=== PATIENT | female | born 1950 | race Caucasian/White ===

== ENCOUNTER 2016-07-10 14:22 | Day surgery (SDC) | payer MEDICARE ==
[~2016-07-10 14:22] MED LIST: ASPI81; CYCL1PAK PO; LORTA5 PO
[2016-07-10 14:45] VITALS: BP 132/72; PULSE 68; RESP 17; TEMP 98.6; O2SAT 96
--- NOTE | 2016-07-10 17:58 | RADRPT ---
EXAM DATE/TIME: 07/10/2016 00:00 [facility] COMPARISON : INDICATIONS : consult for kypho OBJECTIVE: Temperature: 98.2 Heart Rate: 68 Blood Pressure: 132/72 Respiratory: 18 Oximetry: 96 PNEUMONIA VACCINE: HISTORY OF PRESENT ILLNESS: The patient suffered an episode of bronchitis in late May during which time she had multiple bad coughing episodes, one of which led to some sharp pain in her low back. The pain persisted into june with some increase in intensity prompting Dr. Ford to order an MRI. This study revealed new fracture injury at L5 and some degree of acute on chronic injury at L3 in this patient status post p revious T12, L1, L2 and L4 kyphoplasties. She has benefited from significant symptomatic improvement over the last several weeks, however she still experiences low back pain exacerbated by routine activ ities. She has not had any radicular symptomatology. PAST MEDICAL HISTORY : 1. Osteoarthritis. 2. Deep venous thrombosis. 3. depression PAST SURGICAL HISTORY : 1. lumpectomy 2. gu surgery 3. vein stripping 4. kyphoplasty SOCIAL HISTORY : Social alcohol use. Tobacco;none. ALLERGIES: 1. Ancef Isvspuf02 mg q.d. prozac 10 mg q.d. PHYSICAL EXAMINATION: CV: Regular rate and rhythm. Lungs: Clear to auscultation. Mild tenderness over the lower lumbar region. Lower extremities neurologic intact IMAGING STUDIES: MRI of the lumbar spine from [facility] dated June 25, 2016 reveals the above-stated finding s. No significant bony retropulsion. Moderate loss of vertebral body height at L3 and L5. Stable find ings elsewhere. ASSESSMENT: The patient is significantly improved from a symptomatic standpoint, however I am concerned, especial ly given the experience with her previous fractures, that she may continue to have progression of col lapse in the L3 and L5 vertebra which will lead to additional chronic deformity and resultant additio nal disability. We have an opportunity to prevent that by taking action in the subacute phase. The nicole guzmán does wish to proceed. PLAN: We will schedule the patient for L3 and L5 level kyphoplasties at the next available juncture Many thanks to Dr. Ford for inviting us to again assist in the care of this pleasant woman. Steven Pelaez MD on July 10, 2016 at 17:44 Board Certified Radiologist. This report was verified electronically.
== END 2016-07-10 16:12 | disposition home or self-care (01) ==
LOC: HROP 14:22 → HRIP 14:26 → HROP 16:12
PROVIDERS: ATTEND Family Medicine
DX: S32.030A Wedge compression fracture of third lumbar vertebra, initial encounter for closed fracture (principal)

== ENCOUNTER 2016-07-17 11:57 | Day surgery (SDC) | payer MEDICARE ==
[~2016-07-17] VITALS: Ht 170.2 cm; Wt 80.0 kg
[2016-07-17 12:34] VITALS: BP 159/96; PULSE 103; RESP 20; TEMP 98; O2SAT 94
[2016-07-17] MEDS ORDERED: ASPI81CH37 CHEW (12:40)
[2016-07-17] MEDS ORDERED: ALLE60TA PO (12:40)
[2016-07-17] MEDS ORDERED: POVIDONE IODINE 5% (ANTISEPSIS KIT) 4 APPLICATIONS EACH NARE PRN (12:45)
[2016-07-17] MEDS ORDERED: CHLORHEXIDINE GLUCONATE 2 % 1 PACK (2 CLOTHS) TOPICAL PRN (12:45)
[2016-07-17] MEDS ORDERED: SODIUM CHLOR 0.9% 1000 ML INJ 1,000 ML IV SCH (12:45)
[2016-07-17] MEDS ORDERED: LACTATED RINGER'S 1000 ML IV PRN (12:45)
[2016-07-17] MEDS ORDERED: SODIUM CHLORID 0.9% 500 ML IV PRN (12:45)
[2016-07-17] MEDS ORDERED: METOPROLOL TARTRATE 25 MG TAB PO PRN (12:45)
[2016-07-17] MEDS ORDERED: VANCOMYCIN HCL 1000 MG ON-CALL/NS 250 ML IV SCH ×2 (12:45)
[2016-07-17] MEDS ORDERED: INSULIN HUMAN REGULAR 1,000 UNITS/10 ML VIAL SQ PRN (12:45)
[2016-07-17] MEDS ORDERED: GENTAMICIN INJ 120 MG in SODIUM CHLORIDE 0.9% INJ 100 ML IV SCH (13:00)
[2016-07-17 13:17] LABS: AUTOMATED NEUTROPHIL # 5.3 TH/MM3 (1.8-7.7); BASOPHIL # 0.1 TH/MM3 (0-0.2); BASOPHIL % 0.8 % (0.0-2.0); EOSINOPHIL # 0.2 TH/MM3 (0-0.4); EOSINOPHIL % 2.5 % (0.0-4.0); HEMATOCRIT 39.7 % (35.0-46.0); HEMO FLAGS DIFF FINAL; LYMPH % 21.4 % (9.0-44.0); LYMPHOCYTE # 1.7 TH/MM3 (1.0-4.8); MEAN CELL VOLUME 100.1 FL (80.0-100.0); MEAN CORPUSCULAR HEMOGLOBIN 33.4 PG (27.0-34.0); MEAN CORPUSCULAR HGB CONC 33.4 % (32.0-36.0); MONO % 9.3 % (0.0-8.0); PLATELET COUNT 277 TH/MM3 (150-450); RED BLOOD COUNT 3.97 MIL/MM3 (4.00-5.30); RED CELL DISTRIBUTION WIDTH 12.8 % (11.6-17.2)
[2016-07-17 13:25] LABS: APTT (PATIENT) 24.5 SEC (24.3-30.1); PROTHROMBIN TIME - PATIENT 10.7 SEC (9.8-11.6)
[2016-07-17 13:35] LABS: BICARBONATE 24.1 MEQ/L (21.0-32.0); POTASSIUM 3.9 MEQ/L (3.5-5.1)
[2016-07-17] MEDS ORDERED: KETAMINE HCL 500 MG/5 ML VIAL ONE (14:16)
[2016-07-17] MEDS ORDERED: FAMOTIDINE 20 MG/2 ML VIAL ONE (14:18)
[2016-07-17] MEDS ORDERED: diphenhydrAMINE HCL 50 MG/ML VIAL ONE (14:18)
[2016-07-17] MEDS ORDERED: methylPREDNISolone SOD SUCC 125 MG/2 ML VIAL ONE (14:18)
[2016-07-17] MEDS ORDERED: MIDAZOLAM HCL 2 MG/2 ML VIAL ONE (14:31)
[2016-07-17] MEDS ORDERED: BUPIVACAINE HCL PF 0.75% 30 ML VIAL ONE (14:36)
--- NOTE | 2016-07-17 14:49 | EKG ---
Date Performed: 07/17/2016 Time Performed: 12:55:31 PTAGE: 66 years EKG: Sinus rhythm NORMAL ECG PREVIOUS TRACING : 10/27/2013 09.36 No significant change from previous tracing noted. DOCTOR: Gilbert Castro Interpretating Date/Time 07/17/2016 14:48:43
[2016-07-17 16:15] VITALS: BP 109/69; PULSE 84; RESP 16; TEMP 98.1; O2SAT 97
[2016-07-17 16:30] VITALS: BP 118/70; PULSE 84; RESP 14; O2SAT 97
--- NOTE | 2016-07-17 16:51 | PD.RAD ---
Post Procedure Progress Note Pre Procedure Diagnosis: (1) Osteoporotic compression fracture of spine Post Procedure Diagnosis: (1) Osteoporotic compression fracture of spine Procedure Date: Jul 17, 2016 Supervising Radiologist: Steven Pelaez Proceduralist/Assist: RT Len(R)() Anesthesia: MAC Plan of Activity Patient to Unit: ROPU Patient Condition: Good See PACS Report for procedural detail/treatment Spinal Procedure L3, L5 Steven Pelaez MD Jul 17, 2016 16:51
[2016-07-17 17:00] VITALS: BP 115/70; PULSE 79; RESP 18; O2SAT 95
[2016-07-17 17:30] VITALS: BP 119/71; PULSE 80; RESP 18; O2SAT 95
--- NOTE | 2016-07-17 17:30 | RADRPT ---
EXAM DATE/TIME: 07/17/2016 15:18 [facility] COMPARISON: No previous studies available for comparison. INDICATIONS : Patient presents with compression fracture of the third lumbar vertebrae in need of kyphoplasty to r elieve back pain. MEDICAL HISTORY : Wedge compression fracture Venous thrombosis left lower extremity DDD Spondylolysis SURGICAL HISTORY : Lumpectomy sx Vein stripping Kyphoplasty ENCOUNTER: Subsequent ACUITY: 3 months PAIN SCORE: 0/10 LOCATION: n/a FLUORO TIME: 47.9 minutes IMAGE SERIES: 2 LEVEL: L3 DEVICE: 1. 5 cc AVAMax bone cement PROCEDURE : 1. Fluoroscopically-guided kyphoplasty. 2. Conscious sedation with continuous EKG and oximetry monitoring. TECHNIQUE: Department of anesthesia representatives were present for monitoring and sedation purp oses. The patient was placed prone on the fluoroscopy table. The back was prepped in sterile fashion. Full sterile technique was used, including cap, mask, sterile gloves and gown and a large sterile sh eet. Hand hygiene and 2% chlorhexidine and/or betadine/alcohol prep was utilized per protocol for cut aneous antisepsis. The skin and subcutaneous tissues were infiltrated with lidocaine solution. A smal l dermatotomy was made using a #11 scalpel blade. Using a bilateral paramedian transpedicular approac h, a 13 gauge Jamshidi needle is were introduced to the L3 vertebral body. A pair of 15 mm balloon ta mps were introduced, resulting in good cavity creation and some degree of vertebral height restoratio n. AVAmax bone cement was then introduced with good symmetric filling of the vertebral body. A total volume of 5 mL's of cement was introduced. Completion imaging was performed with digital technique. T he patient tolerated the procedure well and was taken to the recovery area in stable condition. CONCLUSION: Uncomplicated fluoroscopic guided percutaneous vertebral augmentation as described in detail above. Steven Pelaez MD on July 17, 2016 at 17:26 Board Certified Radiologist. This report was verified electronically.
--- NOTE | 2016-07-17 17:37 | RADRPT ---
EXAM DATE/TIME: 07/17/2016 15:18 [facility] COMPARISON: No previous studies available for comparison. INDICATIONS : Patient presents with compression fracture of the fifth lumbar vertebrae in need of kyphoplasty to r elieve back pain. MEDICAL HISTORY : Wedge compression fracture Venous thrombosis left lower extremity DDD Spondylolysis SURGICAL HISTORY : Lumpectomy sx Vein stripping Kyphoplasty ENCOUNTER: Subsequent ACUITY: 3 months PAIN SCORE: 0/10 LOCATION: n/a FLUORO TIME: 47.9 minutes IMAGE SERIES: 2 LEVEL: L5 DEVICE: 1. 4 cc AVAMax bone cement PROCEDURE : 1. Fluoroscopically-guided kyphoplasty. 2. Conscious sedation with continuous EKG and oximetry monitoring. TECHNIQUE: Department of anesthesia representatives were present for monitoring and sedation purp oses. The patient was placed prone on the fluoroscopy table. The back was prepped in sterile fashion. Full sterile technique was used, including cap, mask, sterile gloves and gown and a large sterile sh eet. Hand hygiene and 2% chlorhexidine and/or betadine/alcohol prep was utilized per protocol for cut aneous antisepsis. The skin and subcutaneous tissues were infiltrated with lidocaine solution. A smal l dermatotomy was made using a #11 scalpel blade. Using a bilateral paramedian transpedicular approac h, a 13 gauge Jamshidi needles were introduced to the L5 vertebral body. A pair of 15 mm balloon tamp s were introduced, resulting in good cavity creation and some degree of vertebral height baptism. AVAmax bone cement was then introduced with good symmetric filling of the vertebral body. A total vo lume of 4 mL's of cement was introduced. Completion imaging was performed with digital technique. The patient tolerated the procedure well and was taken to the recovery area in stable condition. CONCLUSION: Uncomplicated fluoroscopic guided percutaneous vertebral augmentation as described in detail above. Steven Pelaez MD on July 17, 2016 at 17:33 Board Certified Radiologist. This report was verified electronically.
== END 2016-07-17 18:17 | disposition home or self-care (01) ==
LOC: HROP 11:57 → HRIP 11:58 → HROP 18:17
PROVIDERS: ATTEND Family Medicine
DX: S32.050A Wedge compression fracture of fifth lumbar vertebra, initial encounter for closed fracture (principal); I82.502 Chronic embolism and thrombosis of unspecified deep veins of left lower extremity; Z01.810 Encounter for preprocedural cardiovascular examination
CPT/HCPCS: 22514; 22515; 80048; 85025; 85610; 85730; 93005; J1580; J2250; J3010; J3370; J7030; J7050; J1200; J2930

== ENCOUNTER → 2016-11-05 | Outpatient (CLI) | payer MEDICARE ==
[~2016-11-05] MED LIST changes: +ALLE60TA PO; -ASPI81; +ASPI81CH37 CHEW; -CYCL1PAK PO; -LORTA5 PO
--- NOTE | 2016-11-12 09:45 | RSPPFT ---
DATE OF PROCEDURE: 11/05/16 COMMENTS: Spirometry with FVC of 2.0, FEV1 of 2.0, FEV1/FVC ratio at 100% of predicted. A positive response to acutely inhaled bronchodilator noted. Slow vital capacity is 80% of predicted. TLC at 78%. Diffusion capacity is 52% of predicted however normal when corrected for alveolar volume. IMPRESSION: 1. Mild airways restriction. 2. No evidence of airways obstruction. 3. Reduced diffusion capacity however normal when corrected for alveolar volume.
== END ==
LOC: HRSP 10:41
PROVIDERS: ATTEND Internal Medicine
DX: J30.9 Allergic rhinitis, unspecified (principal); R05 Cough
CPT/HCPCS: 94060; 94726; 94729